=== PATIENT | female | born 1960 | race Caucasian/White ===

== ENCOUNTER 2022-12-04 17:48 | Observation (INO) | payer OTHER ==
[2022-12-04 17:56] VITALS: RESP 18; BMI 22.8
[2022-12-04] MEDS ORDERED: LACTATED RINGERS SOLUTION 1000 ML INFUS.BAG IV ONE (18:51)
[2022-12-04 19:19] LABS: BASO % 0.2 % (0-2.0); EOS % 0.2 % (0-4.5); HEMOGLOBIN 13.9 GM/dL (10.7-15.3); LYMPH % 19.1 % (8-40); MCH 30.5 pg (25.7-33.7); MEAN CELL VOLUME 89.5 fl (80-96); MEAN PLT VOLUME 9.1 fl (7.5-11.1); NEUT % 73.5 % (42.8-82.8); PLATELET COUNT 263 10^3/uL (134-434); RBC 4.57 M/mm3 (3.60-5.2); RDW 13.5 % (11.6-15.6); WHITE BLOOD COUNT 9.2 K/mm3 (4.0-10.0)
[2022-12-04 19:37] LABS: POTASSIUM 4.8 mmol/L (3.5-5.1)
[2022-12-04 19:39] LABS: CALCIUM 9.6 mg/dL (8.5-10.1)
[2022-12-04 19:41] LABS: ALBUMIN 4.1 g/dl (3.4-5.0)
[2022-12-04 19:44] LABS: BILIRUBIN,TOTAL 0.3 mg/dL (0.2-1); CREATININE 0.8 mg/dL (0.55-1.3)
[2022-12-04 19:45] LABS: THROAT:GRP A STREP NOT DETECTED (NOTDETECTED)
[2022-12-04 19:46] LABS: TOT PROT 8.3 g/dl (6.4-8.2)
[2022-12-04] MEDS ORDERED: MECLIZINE HCL 25 MG TABLET (FP) PO ONE (20:07)
[2022-12-04] MEDS ORDERED: MECLIZINE HCL 25 MG TABLET (FP) ONE (20:18)
[2022-12-04] MEDS ORDERED: MELATONIN 1 MG TABLET PO PRN (21:42)
[2022-12-05 00:15] LABS: HIV INTERPRETATION NEGATIVE (NEGATIVE)
[2022-12-05 03:58] LABS: OPIATES, URI NEGATIVE (NEGATIVE); PHENCYCLIDINE,URINE NEGATIVE (NEGATIVE); URINE BARBITURATES NEGATIVE (NEGATIVE); URINE BENZODIAZEPINES NEGATIVE (NEGATIVE)
[2022-12-05 04:07] LABS: COCAINE, UR NEGATIVE (NEGATIVE); METHADONE, UR NEGATIVE (NEGATIVE); URINE AMPHETAMINES NEGATIVE (NEGATIVE)
[2022-12-05] MEDS ORDERED: MELATONIN 1 MG TABLET PO PRN (06:19)
[2022-12-05 09:04] VITALS: BP 113/77; PULSE 104; TEMP 98.6
[2022-12-05] MEDS ORDERED: LISINOPRIL 10 MG TABLET PO SCH (10:00)
[2022-12-05] MEDS ORDERED: ENOXAPARIN NA (PORCINE) 40 MG/0.4 ML DISP.SYRIN SQ SCH (10:00)
[2022-12-05 20:27] LABS: PH,URINE 6.5 (5.0-8.0); URINE APPEARANCE CLEAR; URINE BILIRUBIN NEGATIVE (NEGATIVE); URINE COLOR YELLOW; URINE GLUCOSE (UA) NEGATIVE (NEGATIVE); URINE KETONE NEGATIVE (NEGATIVE); URINE LEUK ESTERASE NEGATIVE (NEGATIVE); URINE NITRITE NEGATIVE (NEGATIVE); URINE PROTEIN NEGATIVE (NEGATIVE); URINE UROBILINOGEN 0.2 mg/dL (0.2-1.0)
[2022-12-05] MEDS ORDERED: ATORVASTATIN CA 40 MG TABLET (FP) PO SCH (22:00)
== END 2022-12-05 14:13 | disposition home or self-care (01) ==
LOC: JER 17:48 → JERBED 20:07 → J4W 12-05 00:58
PROVIDERS: ADMIT Internal Medicine; ATTEND Internal Medicine
PROC: 3E0337Z Introduction of Electrolytic and Water Balance Substance into Peripheral Vein, Percutaneous Approach (ICD-10-PCS; principal; 2022-12-04)
DX: F41.0 Panic disorder [episodic paroxysmal anxiety] (principal); I10 Essential (primary) hypertension; E78.5 Hyperlipidemia, unspecified; R00.2 Palpitations; R61 Generalized hyperhidrosis; R42 Dizziness and giddiness; R06.00 Dyspnea, unspecified; R63.0 Anorexia
CPT/HCPCS: 0241U-QW; 36415; 70450-TC; 71046-TC-FY; 71260-TC; 74177-TC; 80053; 80307; 81003; 84443; 84484; 85025; 86480; 87389; 87651; 93005; 93010; 97116-GP; 97161-GP; G0378; Q9967